=== PATIENT | female | born 1990 ===

== ENCOUNTER 2025-05-30 09:00 | Day surgery (SDC) | payer OTHER ==
[2025-05-23 11:57] VITALS: BP 118/74
[~2025-05-30] VITALS: Ht 157.5 cm; Wt 80.7 kg
[~2025-05-30 09:00] MED LIST: PEPCID AC20 MG; PRILOSEC OTC20 MG; SYNTHROID88 MCG PO; ZYRTEC10 MG
[2025-05-30] MEDS ORDERED: CEFTRIAXONE SODIUM 2,000 MG VIAL ONE (10:06)
[2025-05-30] MEDS ORDERED: METRONIDAZOLE/SODIUM CHLORIDE 500 MG/100 ML PIGGYBACK IV ONE (10:06)
[2025-05-30] MEDS ORDERED: ENOXAPARIN SODIUM 40 MG/0.4 ML SYRINGE SUBCUTANEO ONE (10:11)
[2025-05-30] MEDS ORDERED: PERCOCET 5-3251 EACH PO (14:00)
== END 2025-05-30 16:55 | disposition home or self-care (01) ==
LOC: CIR.AMB 09:00
PROVIDERS: ATTEND Surgery
DX: K80.10 Calculus of gallbladder with chronic cholecystitis without obstruction (principal); Z88.6 Allergy status to analgesic agent